=== PATIENT | female | born 1970 | race Caucasian/White ===

== ENCOUNTER → 2016-07-01 | Outpatient (CLI) | payer OTHER ==
[~2016-07-01] MED LIST: ASPIRIN PO; CERTAGEN PO; PRILOSEC PO; allergy medication; allergy shots
--- NOTE | ~2016-07-01 | CR126 ---
[facility] A Service of [facility] & [facility] RADIOLOGY TEXT RESULTS PATIENT: PATRICIA SIU LOCATION: [facility] : 72 UNIT #: [id number] AGE: [address]: CIERRA HODGES APRN SEX: F ORDER DR: [id number] [facility] [address] [facility] [place], [place] [address] [id number] O MR#: [id number] Acc #: [id number] NAME: PATRICIA SIU : 1970 SEX: F STUDY DATE/TIME: 07/01/2016 11:00 UNIT: [facility] ROOM: STUDY DESCRIPTION: CR Foot Complete Min 3 View Lt Attending Physician: Cierra Hodges Aprn Referring Physician: Cierra Hodges Aprn Ordering Physician: Physician Non-Staff Primary Care Physician: Generic Doctor Not In System MEDICAL IMAGING REPORT This report is preliminary unless electronic signature is present EXAM 3 views left foot, 07/01/2016 HISTORY 46-year-old female, bilateral foot and ankle pain and swelling for 1-2 years. COMPARISON None FINDINGS No fracture. No joint dislocation. Small plantar calcaneal spur. Mild spurring at the dorsum of the midfoot at the tarsometatarsal junctions. No osteolytic or osteoblastic abnormality. No unexpected retained radiopaque foreign body. No radiographic evidence of osteomyelitis. No subcutaneous air is identified. IMPRESSION Mild degenerative changes of the left foot as described. No acute findings. Dictated by... Zari Waggoner M.D. THIS IS AN ELECTRONICALLY VERIFIED REPORT Zari Waggoner M.D. at 07/04/2016 8:30 AM Mike TD: 07/01/2016 16:17 JOB #: [id number] MEDICAL IMAGING REPORT Page 1 of 1 COPY
--- NOTE | ~2016-07-01 | CR127 ---
[facility] A Service of [facility] RADIOLOGY TEXT RESULTS PATIENT: PATRICIA SIU LOCATION: [facility] : 72 UNIT #: [id number] AGE: [address]: CIERRA HODGES APRN SEX: F ORDER DR: [id number] [facility]. [place], [place] [address] [id number] O MR#: [id number] Acc #: [id number] NAME: PATRICIA SIU : 1970 SEX: F STUDY DATE/TIME: 07/01/2016 11:01 UNIT: [facility] ROOM: STUDY DESCRIPTION: CR Foot Complete Min 3 View Rt Attending Physician: Cierra Hodges Aprn Referring Physician: Cierra Hodges Aprn Ordering Physician: Physician Non-Staff Primary Care Physician: Generic Doctor Not In System MEDICAL IMAGING REPORT This report is preliminary unless electronic signature is present EXAM 3 views right foot. DATE 07/01/2016 HISTORY Bilateral foot and ankle pain and swelling for 1-2 years. No documented injury. COMPARISON None. FINDINGS No acute fracture or joint dislocation is seen. There is prominent spurring at the dorsum of the midfoot and hindfoot. Prominent posterior calcaneal spurring is present. No fracture. No dislocation. No radiographic evidence of osteomyelitis. No unexpected retained radiopaque foreign body is seen within the soft tissues. No joint dislocation. No subcutaneous air. IMPRESSION Degenerative changes of the right foot as described. No acute osseous abnormality. Dictated by... Zari Waggoner M.D. THIS IS AN ELECTRONICALLY VERIFIED REPORT Zari Waggoner M.D. at 07/04/2016 8:30 AM LLH/to TD: 07/01/2016 17:05 [facility] A Service [facility] RADIOLOGY TEXT RESULTS PATIENT: PATRICIA SIU LOCATION: [facility] : 72 UNIT #: [id number] AGE: [address]: CIERRA HODGES, THERAPIST RADIATION SEX: F ORDER DR: JOB #: [id number] MEDICAL IMAGING REPORT Page 1 of 1 COPY
--- NOTE | ~2016-07-01 | CR21 ---
[facility] A Service of [facility] RADIOLOGY TEXT RESULTS PATIENT: PATRICIA SIU LOCATION: [facility] : 71 UNIT #: [id number] AGE: [address]: CIERRA LOTT APRN SEX: F ORDER DR: [id number] [facility] [address]. [place], [place] [address] [id number] O MR#: [id number] Acc #: [id number] NAME: PATRICIA SIU : 1970 SEX: F STUDY DATE/TIME: 07/01/2016 11:01 UNIT: [facility] ROOM: STUDY DESCRIPTION: CR Ankle Min 3 Views Rt Attending Physician: Cierra Lott Aprn Referring Physician: Cierra Lott Aprn Ordering Physician: Erick Caraballo Primary Care Physician: Generic Doctor Not In System MEDICAL IMAGING REPORT This report is preliminary unless electronic signature is present EXAM 3 views right ankle DATE 07/01/2016 HISTORY Bilateral foot and ankle pain and swelling for 1-2 years. No documented injury. COMPARISON None FINDINGS No acute right ankle fracture or joint dislocation is seen. There is prominent spurring at the dorsum of the foot and hind foot. Chronic posterior calcaneal spurs are present. Base of fifth metatarsal is intact. No ankle fracture or dislocation. No retained radiopaque foreign body is seen. No evidence of osteomyelitis. IMPRESSION Degenerative spurring of the right foot and ankle as described. No acute abnormality. Dictated by... Zari Waggoner M.D. THIS IS AN ELECTRONICALLY VERIFIED REPORT Zari Waggoner M.D. at 07/04/2016 8:30 AM H/to TD: 07/01/2016 17:08 JOB #: [id number] [facility] A Service [facility] RADIOLOGY TEXT RESULTS PATIENT: PATRICIA SIU LOCATION: [facility] : 72 UNIT #: [id number] AGE: [address]: CIERRA LOTT, CAFETERIA COOK SEX: F ORDER DR: MEDICAL IMAGING REPORT Page 1 of 1 COPY
--- NOTE | ~2016-07-01 | CR20 ---
[facility] A Service of [facility] RADIOLOGY TEXT RESULTS PATIENT: PATRICIA SIU LOCATION: [facility] #: [id number] : 72 UNIT #: [id number] AGE: [address]: CIERRA HODGES APRN SEX: F ORDER DR: [id number] [facility]. [place], [place] [address] [id number] O MR#: [id number] Acc #: [id number] NAME: PATRICIA SIU : 1970 SEX: F STUDY DATE/TIME: 07/01/2016 11:01 UNIT: [facility] ROOM: STUDY DESCRIPTION: CR Ankle Min 3 Views Lt Attending Physician: Cierra Hodges Aprn Referring Physician: Cierra Hodges Aprn Ordering Physician: Erick Not Listed Primary Care Physician: Generic Doctor Not In System MEDICAL IMAGING REPORT This report is preliminary unless electronic signature is present EXAM 3 views left ankle, 07/01/2016. HISTORY 46-year-old female with mild foot and ankle pain and swelling for approximately 1-2 years. COMPARISON MRI of the left ankle, 01/18/2005. FINDINGS No acute fracture or joint dislocation is seen. No unexpected retained radiopaque foreign body is seen in the soft tissues. Benign-appearing bone island is seen in the distal tibial metaphysis. Plantar calcaneal spur is present. 4-mm linear density which could represent soft tissue calcification or foreign body is seen at the extreme posterior margin of the heel soft tissues near the plantar surface (see lateral online image denoted by arrows). No evidence of osteomyelitis. No subcutaneous air is identified. IMPRESSION 1. 4-mm linear radiodensity projects in the posterior plantar surface of the heel soft tissues. This could represent benign soft tissue calcification. Radiopaque foreign body not excluded. 2. No acute osseous abnormality of the left ankle. Plantar calcaneal spur. 3. Benign-appearing bone island in the tibial metaphysis. Dictated by... Zari Waggoner M.D. [facility] A Service of [facility] RADIOLOGY TEXT RESULTS PATIENT: PATRICIA SIU LOCATION: [facility] #: [id number] : 72 UNIT #: [id number] AGE: [address]: CIERRA HODGES APRN SEX: F ORDER DR: THIS IS AN ELECTRONICALLY VERIFIED REPORT Zari Waggoner M.D. at 07/04/2016 8:30 AM Terrence TD: 07/01/2016 16:27 JOB #: [id number] MEDICAL IMAGING REPORT Page 1 of 1 COPY
== END | disposition home or self-care (01) ==
LOC: CRAD 10:54
DX: M79.671 Pain in right foot (principal); M79.672 Pain in left foot; M77.32 Calcaneal spur, left foot; M77.51 Other enthesopathy of right foot and ankle
CPT/HCPCS: 73610; 73630